=== PATIENT | male | born 1960 | race Caucasian/White ===

== ENCOUNTER 2017-09-21 12:53 | Emergency (ER) | payer MEDICARE ==
[2017-09-21] MEDS ORDERED: ONDANSETRON 4 MG/2 ML VIAL IVP ONE (13:10)
[2017-09-21] MEDS ORDERED: ASPIRIN 81 MG CHEW PO ONE (13:10)
[2017-09-21] MEDS ORDERED: NITROGLYCERIN 0.4 MG SUBL SL ONE (13:15)
[2017-09-21 13:22] LABS: PLATELET COUNT, AUTOMATED 174 K/uL (150-450)
--- NOTE | 2017-09-21 13:45 | RADIOLOGY IMAGING REPORT ---
FACILITY: [facility] PATIENT NAME: Marcio Rader : 1960 MR: [id number] V: [id number] EXAM DATE: ORDERING PHYSICIAN: TYSON LINK TECHNOLOGIST: Location: [facility] Patient: Marcio Rader : 1960 Visit/Account:[id number] Date of Sevice: 09/21/2017 EXAMINATION: Portable chest radiograph single view at 1:09 PM HISTORY: Chest pain. COMPARISON: None. FINDINGS: A single portable AP view of the chest is obtained. Lines/tubes: Sternal wires and mediastinal surgical clips. Lungs/pleura: No focal consolidation or pleural effusion. Pulmonary vascularity is within normal cornelius its. No evidence of pneumothorax. Heart: Normal heart size. Mediastinum: Negative. Bony structures/body wall: Negative. IMPRESSION: No radiographic evidence of acute cardiopulmonary disease. Report Dictated By: Edgar Judge MD at 09/21/2017 1:40 PM Report E-Signed By: Edgar Judge MD at 09/21/2017 1:42 PM WSN:[id number]
[2017-09-21] MEDS ORDERED: MORPHINE 2 MG/ML SYR IVP ONE ×2 (13:55→14:40)
[2017-09-21 14:00] LABS: INR 1.07
[2017-09-21] MEDS ORDERED: NS(*) 0.9% 500 ML BAG 500 ML IV ONE (14:00)
[2017-09-21] MEDS ORDERED: HEPARIN* SOD/D5W 25000 U/500ML 500 ML IV ONE (14:37)
[2017-09-21] MEDS ORDERED: HEPARIN (PORC) 5000 UN/ML VIAL IVP ONE (14:40)
--- NOTE | 2017-09-21 14:50 | ER Report ---
History and Physical Time Seen By MD: 12:58 Hx. of Stated Complaint: PT REPORTS CHEST PAIN, NAUSEA, HEAVY CHEST HPI/ROS CHIEF COMPLAINT: Chest pain ,HISTORY OF PRESENT ILLNESS: Patient is a 57-year-old male who presents to ED with complaint of chest pain that started about 1-1/2 hours ago while he was driving. He states that he is currently on his way from [place], [place] to [place], [place] see his brother. He states that the pain feels like a midsternal chest pressure. He denies any radiation into his jaw or arms. He has had some nausea and diaphoresis and shortness of breath with this. He denies any vomiting. He states that this does feel similar to when he states that his previous heart attacks. Patient has significant history of heart disease including 2 CABGs, the 1st being a three-vessel the 2nd being a two-vessel. He also has a history of 11 previous stents. He did currently take aspirin today and his Plavix. He also taken a few of his nitroglycerin pills without any relief. REVIEW OF SYSTEMS: Constitutional: No fever, no chills. Eyes: No discharge. ENT: No sore throat. Cardiovascular: History of present illness. No palpitations. Respiratory: No cough, no shortness of breath. Gastrointestinal: No abdominal pain, no vomiting. Genitourinary: No hematuria. Musculoskeletal: No back pain. Skin: No rashes. Neurological: No headache. Allergies: Coded Allergies: isosorbide (Verified Allergy, Unknown, 09/21/17) Uncoded Allergies: CONTRAST DYE (Allergy, Mild, HIVES, 09/21/17) Home Meds Reported Medications Clopidogrel Bisulfate (CLOPIDOGREL) 75 Mg Tablet, 1 TAB PO QDAY, TAB 09/21/17 Prazosin Hcl (PRAZOSIN HCL) 1 Mg Capsule, 1 MG PO, CAPSULE 09/21/17 Zolpidem Tartrate (AMBIEN) 10 Mg Tablet, 1 TAB PO QHS, TAB 09/21/17 Topiramate (TOPIRAMATE) 50 Mg Tablet, 50 MG PO BID 09/21/17 Olanzapine (OLANZAPINE) 5 Mg Tablet, 5 MG PO QDAY 09/21/17 Divalproex Sodium (DIVALPROEX SODIUM ER) 500 Mg Tab.er.24h, 500 MG PO QDAY, TAB 09/21/17 Aspirin/Acetaminophen/Caffeine (EXCEDRIN EXTRA STRENGTH CAPLET) 1 Each Tablet, 1 EACH PO 09/21/17 Metoprolol Tartrate (METOPROLOL TARTRATE) 25 Mg Tablet, 1 TAB PO BID, TAB 09/21/17 Gabapentin (GABAPENTIN) 300 Mg Capsule, 600 MG PO TID, CAPSULE 09/21/17 Oxycodone Hcl/Acetaminophen (OXYCODONE-ACETAMINOPHEN 5-325) 1 Each Tablet, 1 EACH PO, TAB 09/21/17 Reviewed Nurses Notes: Yes Old Medical Records Reviewed: Yes Hx Substance Use Disorder: No Hx Alcohol Use: No (ALLERGIC ) Constitutional Vital Sign - Last 24 Hours 09/21/17 09/21/17 09/21/17 09/21/17 12:53 12:58 12:58 13:08 Temp 98.2 Pulse ??? 79 79 Resp 16 7 B/P (MAP) 137/84 (101) 137/84 Pulse Ox 98 94 O2 Delivery Room Air 09/21/17 09/21/17 09/21/17 09/21/17 13:20 13:23 13:25 13:30 Pulse 83 Resp 21 B/P (MAP) 117/73 (88) 115/67 (83) 112/82 (92) Pulse Ox 91 09/21/17 09/21/17 09/21/17 09/21/17 13:35 13:38 13:40 13:50 Pulse 71 Resp 15 B/P (MAP) 118/89 (99) 95/63 (74) 107/69 (82) Pulse Ox 97 09/21/17 09/21/17 09/21/17 09/21/17 13:53 14:00 14:08 14:10 Pulse 75 75 Resp 12 7 B/P (MAP) 114/79 (91) 117/81 (93) Pulse Ox 97 97 09/21/17 09/21/17 09/21/17 09/21/17 14:20 14:23 14:30 14:34 Pulse 73 Resp 8 B/P (MAP) 85/67 (73) 83/68 (73) 121/79 (93) 09/21/17 09/21/17 09/21/17 09/21/17 14:38 14:40 14:45 14:50 Pulse 73 Resp 16 B/P (MAP) 126/83 (97) 139/97 (111) 122/92 (102) Pulse Ox 97 09/21/17 09/21/17 09/21/17 09/21/17 14:55 15:00 15:05 15:10 Pulse 73 80 Resp 10 31 B/P (MAP) 127/86 (100) 127/74 (91) 129/70 (89) 132/91 (105) Pulse Ox 97 94 09/21/17 09/21/17 09/21/17 09/21/17 15:15 15:20 15:25 15:30 Pulse 69 Resp 7 B/P (MAP) 119/77 (91) 128/80 (96) 121/66 (84) 97/72 (80) Pulse Ox 95 09/21/17 09/21/17 09/21/17 09/21/17 15:35 15:40 15:45 15:55 Pulse 73 ??? Resp 20 B/P (MAP) 121/72 (88) 133/123 (126) 120/82 (95) Pulse Ox 98 Intake and Output 09/21/17 09/21/17 09/22/17 14:59 22:59 06:59 Intake Total 520 ml Balance 520 ml Physical Exam General Appearance: The patient is alert, has no immediate need for airway protection and no signs of toxicity. Patient appears to be no acute distress. Eyes: Pupils equal and round no pallor or injection. ENT, Mouth: Mucous membranes are moist. Respiratory: There are no retractions, lungs are clear to auscultation. Cardiovascular: Regular rate and rhythm. Gastrointestinal: Abdomen is soft and non tender, no masses, bowel sounds normal. Neurological: Cranial nerves II-12 intact. Skin: Warm and dry, no rashes. Musculoskeletal: Neck is supple non tender. Extremities are nontender, nonswollen and have full range of motion. DIFFERENTIAL DIAGNOSIS: After history and physical exam differential diagnosis was considered for chest pain including but not limited to myocardial ischemia, pericarditis pulmonary embolus, chest wall pain, pleural inflammation and pulmonary infectious causes. Medical Decision Making Data Points Result Diagram: 09/21/17 1310 09/21/17 1310 Laboratory Hematology Test 09/21/17 13:10 Red Blood Count 3.81 M/uL (4.00-5.60) Mean Corpuscular Volume 93.2 fL (80.0-96.0) Mean Corpuscular Hemoglobin 32.2 pg (26.0-33.0) Mean Corpuscular Hemoglobin Concent 34.6 g/dL (32.0-36.0) Red Cell Distribution Width 15.1 % (11.5-14.5) Mean Platelet Volume 7.9 fL (7.2-11.1) Neutrophils (%) (Auto) 45.3 % (39.4-72.5) Lymphocytes (%) (Auto) 35.7 % (17.6-49.6) Monocytes (%) (Auto) 14.8 % (4.1-12.4) Eosinophils (%) (Auto) 3.6 % (0.4-6.7) Basophils (%) (Auto) 0.6 % (0.3-1.4) Nucleated RBC Relative Count (auto) 0.1 /100WBC Neutrophils # (Auto) 2.0 K/uL (2.0-7.4) Lymphocytes # (Auto) 1.6 K/uL (1.3-3.6) Monocytes # (Auto) 0.7 K/uL (0.3-1.0) Eosinophils # (Auto) 0.2 K/uL (0.0-0.5) Basophils # (Auto) 0.0 K/uL (0.0-0.1) Nucleated RBC Absolute Count (auto) 0.00 K/uL Prothrombin Time 14.0 seconds (12.0-14.4) Prothromb Time International Ratio 1.07 Activated Partial Thromboplast Time 29 seconds (23-35) D-Dimer Quantitative (PE/DVT) 0.29 ug/ml (0-0.50) Sodium Level 136 mmol/L (137-145) Potassium Level 3.2 mmol/L (3.5-5.0) Chloride Level 101 mmol/L (98-107) Carbon Dioxide Level 25 mmol/L (22-30) Blood Urea Nitrogen 15 mg/dl (9-21) Creatinine 1.30 mg/dl (0.66-1.25) Glomerular Filtration Rate Calc 56.7 Random Glucose 93 mg/dl (75-110) Calcium Level 9.1 mg/dl (8.4-10.2) Total Bilirubin 0.5 mg/dl (0.2-1.3) Aspartate Amino Transf (AST/SGOT) 42 U/L (0-35) Alanine Aminotransferase (ALT/SGPT) 31 U/L (0-56) Alkaline Phosphatase 102 U/L (0-126) Troponin I < 0.012 ng/ml B-Type Natriuretic Peptide 51 pg/ml (0-100) Total Protein 7.6 g/dl (6.3-8.2) Albumin 4.1 g/dl (3.5-5.0) Chemistry Test 09/21/17 13:10 White Blood Count 4.4 k/uL (4.5-11.0) Red Blood Count 3.81 M/uL (4.00-5.60) Hemoglobin 12.3 g/dL (14.0-18.0) Hematocrit 35.5 % (42.0-52.0) Mean Corpuscular Volume 93.2 fL (80.0-96.0) Mean Corpuscular Hemoglobin 32.2 pg (26.0-33.0) Mean Corpuscular Hemoglobin Concent 34.6 g/dL (32.0-36.0) Red Cell Distribution Width 15.1 % (11.5-14.5) Platelet Count 174 K/uL (150-450) Mean Platelet Volume 7.9 fL (7.2-11.1) Neutrophils (%) (Auto) 45.3 % (39.4-72.5) Lymphocytes (%) (Auto) 35.7 % (17.6-49.6) Monocytes (%) (Auto) 14.8 % (4.1-12.4) Eosinophils (%) (Auto) 3.6 % (0.4-6.7) Basophils (%) (Auto) 0.6 % (0.3-1.4) Nucleated RBC Relative Count (auto) 0.1 /100WBC Neutrophils # (Auto) 2.0 K/uL (2.0-7.4) Lymphocytes # (Auto) 1.6 K/uL (1.3-3.6) Monocytes # (Auto) 0.7 K/uL (0.3-1.0) Eosinophils # (Auto) 0.2 K/uL (0.0-0.5) Basophils # (Auto) 0.0 K/uL (0.0-0.1) Nucleated RBC Absolute Count (auto) 0.00 K/uL Prothrombin Time 14.0 seconds (12.0-14.4) Prothromb Time International Ratio 1.07 Activated Partial Thromboplast Time 29 seconds (23-35) D-Dimer Quantitative (PE/DVT) 0.29 ug/ml (0-0.50) Glomerular Filtration Rate Calc 56.7 Calcium Level 9.1 mg/dl (8.4-10.2) Total Bilirubin 0.5 mg/dl (0.2-1.3) Aspartate Amino Transf (AST/SGOT) 42 U/L (0-35) Alanine Aminotransferase (ALT/SGPT) 31 U/L (0-56) Alkaline Phosphatase 102 U/L (0-126) Troponin I < 0.012 ng/ml B-Type Natriuretic Peptide 51 pg/ml (0-100) Total Protein 7.6 g/dl (6.3-8.2) Albumin 4.1 g/dl (3.5-5.0) Coagulation Test 09/21/17 13:10 Prothrombin Time 14.0 seconds Prothromb Time International Ratio 1.07 Activated Partial Thromboplast Time 29 seconds D-Dimer Quantitative (PE/DVT) 0.29 ug/ml EKG/Imaging EKG Interpretation 12 lead EK Rhythm: Sinus rhythm, rate 71 bpm [place]: normal QRS: normal ST segments: No acute ST changes identified. There is some T-wave inversion V1. 12 lead EK Rhythm: Sinus rhythm, rate 81 bpm [place]: normal QRS: normal ST segments: No acute ST changes identified. There is some T-wave inversion V1. Imaging CXR: IMPRESSION: No radiographic evidence of acute cardiopulmonary disease. Report Dictated By: Edgar Judge MD at 09/21/2017 1:40 PM Report E-Signed By: Edgar Judge MD at 09/21/2017 1:42 PM ED Course/Re-evaluation Clinical Indication for ER IV: Hydration ED Course Will obtain chest x-ray, EKG, labs. 09/21/2017 2:48:26 pm - discussed all labs, EKG, chest x-ray with patient. Everything appears essentially normal except for some slight hyponatremia and hypokalemia. He does have some mild leukopenia as well. Troponin and d-dimer are negative. Patient does have a heart score at 5 which places him in moderate risk. [facility] is unfortunately full and on diversion. Discussed with Dr. Quintero, graduate assistant athletic trainer at [facility], who will accept patient under his care. He advises to give the patient a heparin bolus and drip. Patient has been given nitroglycerin morphine here with continued pain. This is likely unstable angina at this time. He did have some mild hypotension so was given a 500 mg normal saline bolus and another 2 mg IV morphine for pain relief. Decision to Disposition Date: Sep 21, 2017 Decision to Disposition Time: 14:50 Depart Departure Latest Vital Signs Vital Signs Date Time Temp Pulse Resp B/P (MAP) Pulse Ox O2 Delivery O2 Flow Rate FiO2 09/21/17 15:55 ??? 09/21/17 15:45 120/82 (95) 09/21/17 15:40 20 98 09/21/17 12:58 98.2 Room Air Impression: Primary Impression: Unstable angina Condition: Condition Unchanged Disposition: XFER TO [facility] MD Consult Note: Dr. Quintero, Cardiology at [facility] TYSON LINK PA-C Sep 21, 2017 14:50
[2017-09-21] MEDS ORDERED: OXYC-373 PO (15:24)
[2017-09-21] MEDS ORDERED: TOPI50TA92 PO (15:24)
[2017-09-21] MEDS ORDERED: METO25TA93 PO (15:24)
[2017-09-21] MEDS ORDERED: GABA-549 PO (15:24)
[2017-09-21] MEDS ORDERED: CLOP75TA PO (15:24)
[2017-09-21] MEDS ORDERED: ASPI1TAB35 PO (15:24)
[2017-09-21] MEDS ORDERED: DIV500ER PO (15:24)
[2017-09-21] MEDS ORDERED: PRAZ1CAP26 PO (15:24)
[2017-09-21] MEDS ORDERED: ZOLP-350 PO (15:24)
[2017-09-21] MEDS ORDERED: OLAN5TAB27 PO (15:24)
[2017-09-21 15:45] VITALS: BP 120/82
--- NOTE | 2017-09-21 17:29 | EKG ---
FACILITY: [facility] [place] PATIENT NAME: SENAIT LOVING : [id number] MR: [id number] V: [id number] EXAM DATE: ORDERING PHYSICIAN: TYSON LINK TECHNOLOGIST: CHARLIE Aranda Reason : Blood Pressure : / mmHG Vent. Rate : 081 BPM Atrial Rate : 081 BPM P-R Int : 176 ms QRS Dur : 092 ms QT Int : 394 ms P-R-T Axes : 052 022 014 degrees QTc Int : 457 ms Normal sinus rhythm Septal infarct , age undetermined Abnormal ECG No previous ECGs available Confirmed by DARCIE BAILEY ([id number]) on 09/21/2017 7:34:47 PM Referred By: KORI Confirmed By:DARCIE BAILEY
--- NOTE | 2017-09-21 17:30 | EKG ---
[place] [facility] [place] NAME: SENAIT LOVING : [id number] MR: [id number] V: [id number] EXAM DATE: ORDERING PHYSICIAN: TYSON LINK TECHNOLOGIST: CHARLIE Aranda Reason : REPEAT Blood Pressure : / mmHG Vent. Rate : 071 BPM Atrial Rate : 071 BPM P-R Int : 176 ms QRS Dur : 094 ms QT Int : 428 ms P-R-T Axes : 035 040 051 degrees QTc Int : 465 ms Normal sinus rhythm Septal infarct (cited on or before 21-SEP-2017) Abnormal ECG When compared with ECG of 21-SEP-2017 12:59, Nonspecific T wave abnormality no longer evident in Inferior leads Confirmed by DARCIE BAILEY ([id number]) on 09/21/2017 7:35:25 PM Referred By: NIKOLAY Confirmed By:DARCIE BAILEY
== END 2017-09-21 16:05 | disposition short-term general hospital (02) ==
LOC: ER 12:56
DX: I20.0 Unstable angina (principal); D72.819 Decreased white blood cell count, unspecified; I95.9 Hypotension, unspecified
CPT/HCPCS: 71045; 83880; 84484; 85025; 85379; 85610; 85730; 93005; 96361; 96365; 96375; 96376; 99285; A9270; J1644; J2270; J2405; J7040; 82040; 82247; 82310; 82374; 82435; 82565; 82947; 84075; 84132; 84155; 84295; 84450; 84460; 84520

== ENCOUNTER → 2017-09-21 | Outpatient (CLI) | payer MEDICARE ==
[~2017-09-21] MED LIST: ASPI1TAB35 PO; CLOP75TA PO; DIV500ER PO; GABA-549 PO; METO25TA93 PO; OLAN5TAB27 PO; OXYC-373 PO; PRAZ1CAP26 PO; TOPI50TA92 PO; ZOLP-350 PO
== END ==
LOC: AMB 15:30
PROVIDERS: ATTEND Nurse Practitioner
DX: I20.0 Unstable angina (principal)
CPT/HCPCS: A0425; A0426